=== PATIENT | female | born 1985 | race Caucasian/White ===

== ENCOUNTER → 2019-03-25 15:48 | Outpatient (CLI) | payer BC, SELFPAY ==
[2019-03-25 16:16] LABS: Add Manual Diff / Slide Review NO; Basophils Absolute Auto 100 /uL (0-100); Basophils Percent Auto 0.7 % (0-2); Eosinophils Absolute Auto 200 /uL (0-450); Eosinophils Percent Auto 1.7 % (2-4); Hemoglobin 14.1 g/dL (12.0-16.0); Lymphocytes Absolute Auto 2600 /uL (1100-4500); Lymphocytes Percent Auto 26.9 % (25-40); Mean Corpuscular HGB Conc 33.7 % (30-36); Mean Corpuscular Volume 89.1 fL (80-100); Monocytes Absolute Auto 500 /uL (0-900); Monocytes Percent Auto 5.7 % (3-14); Neutrophils Absolute Auto 6200 /uL (1500-7000); Platelet Count 295 X10^3/uL (150-400); Red Blood Cell Count 4.71 X10^6/uL (4.0-5.2); White Blood Cell Count 9.5 X10^3/uL (4.5-11.0)
[2019-03-25 17:01] LABS: Erythrocyte Sedimentation Rate 3 MM/HR (0-20)
[2019-03-25 17:19] LABS: Alanine Aminotransferase 18 IU/L (9-52); Albumin 4.3 g/dL (3.5-5.0); Albumin Globulin Ratio 1.7 (1.0-2.8); Alkaline Phosphatase 65 U/L (38-126); Aspartate Aminotransferase 27 IU/L (14-36); BUN Creatinine Ratio 21.4 (6-22); Bilirubin Total 0.3 mg/dL (0.2-1.3); Blood Urea Nitrogen 15 mg/dL (7-17); Calcium 9.8 mg/dL (8.4-10.2); Carbon Dioxide 27 mmol/L (22-32); Chloride 106 mmol/L (98-107); Estimated Glomerular Filt Rate > 60.0 mL/min (>60); Globulin 2.6 g/dL (1.7-4.1); Glucose 99 mg/dL (70-100); HEMOLYSIS < 15 (0-50); Potassium 4.9 mmol/L (3.4-5.1); Sodium 139 mmol/L (137-145); Total Protein 6.9 g/dL (6.3-8.2)
[2019-03-25 17:33] LABS: Free T3, Triiodothyronine Free 2.61 pg/mL (2.77-5.27); Free T4, Direct Thyroxine 1.07 ng/dL (0.78-2.19)
[2019-03-25 17:47] LABS: Thyroid Stimulating Hormone 1.15 uIU/mL (0.47-4.68)
== END ==
PROVIDERS: Visit Provider Internal Medicine Rheumatology
DX: E03.8 Other specified hypothyroidism (principal); E06.3 Autoimmune thyroiditis; M19.90 Unspecified osteoarthritis, unspecified site
CPT/HCPCS: 36415; 80053; 84439; 84443; 84481; 85025; 85651

== ENCOUNTER 2021-01-28 16:05 | Emergency (ER) | payer BC, SELFPAY ==
[2021-01-28 16:13] VITALS: BP 139/86; PULSE 96; RESP 16; TEMP 36.9; O2SAT 98; BMI 21.4
--- NOTE | 2021-01-28 17:39 | DI.RAD.S_ITS ---
PROCEDURE: XR FINGER LT MIN 2V INDICATIONS: nail injury to distal end of 5th digit TECHNIQUE: AP hand, 2 views of the 5th digit acquired. COMPARISON: None. FINDINGS: Bones: No displaced fractures or dislocations. There is a curvilinear lucency within the base of the 5th distal phalanx extending to the distal interphalangeal joint suspicious for a nondisplaced fracture. No suspicious bony lesions. Soft tissues: No suspicious soft tissue calcifications. IMPRESSION: 1. Suspected nondisplaced fracture in the 5th distal phalanx. Dictated by: Kevin Mazariegos M.D. on 01/28/2021 at 18:55 Approved by: Kevin Mzaariegos M.D. on 01/28/2021 at 18:56
[2021-01-28] MEDS: KETOROLAC 30 MG/ML VIAL IM (17:55)
--- NOTE | 2021-01-28 19:26 | ED_ITS ---
HPI - Extremity Injury (Upper) <RUDI Altman - Last Filed: 01/28/21 19:51> General Chief Complaint: Extremity Injury, Upper Stated Complaint: drill through left 5th finger nail Time Seen by Provider: 01/28/21 17:24 Source: patient Mode of arrival: Ambulatory Limitations: no limitations History of Present Illness HPI narrative: The patient is a 35-year-old female nonsmoker who presents with a chief complaint of hitting her left 5th finger nail with a drill. She is concerned about a fracture she states her tetanus is updated 2 years ago. She washed out the injury but has not taken anything for pain. It occurred approximately 330 p.m.. Related Data Home Medications Medication Instructions Recorded Confirmed bupropion HBr [Aplenzin] 150 mg OR Q DAY #0 08/05/16 09/21/20 desvenlafaxine succinate [Pristiq] 50 mg OR Q DAY #0 08/05/16 09/21/20 liothyronine 50 mcg tablet 50 mcg PO DAILY 09/21/20 09/21/20 Previous Rx's Medication Instructions Recorded cephalexin 500 mg PO TID #21 cap 01/28/21 hydrocodone-acetaminophen 1 tab PO Q4-6H PRN #10 tab 01/28/21 Allergies Allergy/AdvReac Type Severity Reaction Status Date / Time Penicillins [PENICILLINS] AdvReac Mild UPSET Unverified 09/21/20 15:15 STOMACH Review of Systems <RUDI Altman - Last Filed: 01/28/21 19:51> Review of Systems Narrative: GENERAL: Denies chills, fatigue, malaise, fever, sweats. HEENT: Denies sinus pain, ear pain, sore throat, difficulty swallowing, dizziness. RESPIRATORY: Denies dyspnea, cough, wheezing, hemoptysis, sputum. CARDIOVASCULAR: Denies chest pain, palpitations, orthopnea, edema, GASTROINTESTINAL: Denies nausea, vomiting, abdominal pain, diarrhea, constipation, melena. : Denies dysuria, frequency, incontinence, hematuria, urinary retention. MUSCULOSKELETAL: See HPI SKIN: See HPI NEUROLOGIC: Denies weakness, headache, numbness, change in speech, confusion, seizures, incoordination. PSYCHIATRIC: No concerning psychosocial issues. 12 point review of systems is negative except for those stated above Patient History <RUDI Altman - Last Filed: 01/28/21 19:51> Social History Smoking Status: Never smoker Smoking Status: Never smoker Exam <RUDI Altman - Last Filed: 01/28/21 19:51> Narrative Exam Narrative: GENERAL: This is a well-nourished, well-developed patient, in no acute distress HEAD: Atraumatic. Normocephalic. No temporal or scalp tenderness. EYES: Pupils equal round and reactive. Extraocular motions intact. No scleral icterus. No injection or drainage. ENT: Nose without bleeding, purulent drainage or septal hematoma. Wearing a mask Airway patent. NECK: Trachea midline. No JVD or lymphadenopathy. Supple, nontender, no meningeal signs. CARDIOVASCULAR: Regular rate and rhythm EXTREMITIES: Impression noted left 5th fingernail, no subungual hematoma noted. Small puncture appearing noted in the middle of the left 5th digit nail. Able to flex and extend left 5th finger against resistance, though decreased range of motion noted. BACK: Nontender without deformity or crepitance. No flank tenderness. NEURO: AOx3. SKIN: See extremity exam Initial Vital Signs Initial Vital Signs: Vital Signs Temperature 98.4 F 01/28/21 16:13 Pulse Rate 96 H 01/28/21 16:13 Respiratory Rate 16 01/28/21 16:13 Blood Pressure 139/86 01/28/21 16:13 Pulse Oximetry 98 01/28/21 16:13 <Trini Dunbar DO - Last Filed: 01/29/21 10:31> Initial Vital Signs Initial Vital Signs: Vital Signs Temperature 98.4 F 01/28/21 16:13 Pulse Rate 96 H 01/28/21 16:13 Respiratory Rate 16 01/28/21 16:13 Blood Pressure 139/86 01/28/21 16:13 Pulse Oximetry 98 01/28/21 16:13 Procedures <RUDI Altman - Last Filed: 01/28/21 19:51> Orthopedic Splinting/Casting Injury #1: Side: left Upper Extremity Injury Location: finger Post splinting neuro exam: intact Post splinting vascular exam: intact Placed by: Nursing Scores <RUDI Altman - Last Filed: 01/28/21 19:51> [facility] [place] coma scale eye opening: Spontaneous [place] coma scale verbal response: Orientated Ragini coma scale motor response: Obey commands [place] coma scale total score: 15 Course <RUDI Altman - Last Filed: 01/28/21 19:51> Orders Ordered: Discontinued Medications Cephalexin HCl (Cephalexin 250 Mg Capsule) 500 mg PO NOW ONE Stop: 01/28/21 19:13 Last Admin: 01/28/21 19:28 Dose: 500 mg Documented by: MARIA L Ketorolac Tromethamine (Ketorolac 30 Mg/Ml Vial) 30 mg IM NOW ONE Stop: 01/28/21 17:42 Last Admin: 01/28/21 17:55 Dose: 30 mg Documented by: MARIA L Vital Signs Vital signs: Vital Signs - 8 hr 01/28/21 16:13 Temperature 98.4 F Pulse Rate 96 H Respiratory Rate 16 Blood Pressure 139/86 Pulse Oximetry 98 <Trini Dunbar DO - Last Filed: 01/29/21 10:31> Orders Ordered: Discontinued Medications Cephalexin HCl (Cephalexin 250 Mg Capsule) 500 mg PO NOW ONE Stop: 01/28/21 19:13 Last Admin: 01/28/21 19:28 Dose: 500 mg Documented by: MARIA L Ketorolac Tromethamine (Ketorolac 30 Mg/Ml Vial) 30 mg IM NOW ONE Stop: 01/28/21 17:42 Last Admin: 01/28/21 17:55 Dose: 30 mg Documented by: MARIA L Vital Signs Vital signs: Vital Signs - 8 hr 01/28/21 16:13 Temperature 98.4 F Pulse Rate 96 H Respiratory Rate 16 Blood Pressure 139/86 Pulse Oximetry 98 MDM - Extremity Injury (Upper) <RUDI Altman - Last Filed: 01/28/21 19:51> Imaging Data Extremity x-ray #1: Radiologist's Impression: [address] [place] [id number] ReportSigned Patient: Fadia Wilson [facility]#: [id number]: 1985Acct:[id number]/Sex: 35 / FDate of Service: 01/28/21Loc: EDAccession Number: [id number] Procedure: XR finger LT min 2V Ordering Provider: Ling Gonzalez PROCEDURE: XR FINGER LT MIN 2V INDICATIONS: nail injury to distal end of 5th digit TECHNIQUE: AP hand, 2 views of the 5th digit acquired. COMPARISON: None. FINDINGS: Bones: No displaced fractures or dislocations. There is a curvilinear lucency within the base of the 5th distal phalanx extending to the distal interphalangeal joint suspicious for a nondisplaced fracture. No suspicious bony lesions. Soft tissues: No suspicious soft tissue calcifications. IMPRESSION: 1. Suspected nondisplaced fracture in the 5th distal phalanx. Dictated by: Kevin Mazariegos M.D. on 01/28/2021 at 18:55 Approved by: Kevin Mazariegos M.D. on 01/28/2021 at 18:56 MDM Narrative Medical decision making narrative: The patient is a 35-year-old female who presents with a chief complaint of an injury to her left 5th digit fingernail. Her tetanus is up-to-date. She is given Toradol for pain in the emergency department, which she states helps her pain. X-ray is suspicious for nondisplaced fracture, so will place patient on Keflex. She is placed in a finger splint. I discussed at length the importance follow-up with primary care provider for wound re-evaluation shortly. Will do small prescription of [place] for pain. Discussed at length coming back to the ER for acute concerns such as drainage, extending redness etcetera. Patient has no questions or concerns upon discharge states understanding return precautions as well as follow-up care. The patient declines River[place] in the emergency department. Discharge Plan Departure Patient Disposition: Home Clinical Impression: Finger fracture Qualifiers: Encounter type: initial encounter Finger: little finger Fracture type: open Phalanx: distal Fracture alignment: nondisplaced Laterality: left Qualified Code(s): S62.667B - Nondisplaced fracture of distal phalanx of left little finger, initial encounter for open fracture Instructions: DI for Finger Fracture, DI for Open Fracture Activity Restrictions/Additional Instructions: Thank you for trusting us with your care today. As discussed, there is suspicion of a small fracture in your finger. Given the injury of the nail, we have placed you on Keflex. This is an antibiotic. Please follow-up with primary care provider in the next few days. I have also placed your finger in a splint. Please come back to the emergency department for any acute concerns such as extending redness etcetera. Please keep your finger clean and dry. Do not submerge into any dirty water like [place] water etcetera. I did send a small prescription of a pain medicine in for you. You have been prescribed narcotic medications. While on these medications you cannot drive or operate heavy machinery. Additionally you cannot sign legal documents or perform any duties such as this. 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 Prescriptions: New cephalexin 500 mg capsule 500 mg PO TID Qty: 21 RF: 0 hydrocodone-acetaminophen 5-325 mg tablet 1 tab PO Q4-6H PRN (Reason: pain) Qty: 10 RF: 0 No Action bupropion HBr [Aplenzin] 174 MG tablet extended release 24 hr 150 mg OR Q DAY Qty: 0 RF: 0 desvenlafaxine succinate [Pristiq] 50 MG tablet extended release 24 hr 50 mg OR Q DAY Qty: 0 RF: 0 liothyronine 50 mcg tablet 50 mcg PO DAILY RF: 0 Referrals: Ophelia Naidu PA-C [Primary Care Provider] - Stand Alone Forms: Work Release Note <Trini Dunbar DO - Last Filed: 01/29/21 10:31> Cosign ED Attending [place] Attestation: I was immediately available in the department for consultation. Documentation has been reviewed. I agree with assessment and plan.
[2021-01-28] MEDS: cephALEXin 250 MG CAPSULE 500 MG PO (19:28)
[2021-01-28 19:53] VITALS: BP 140/82; PULSE 80; O2SAT 100
== END 2021-01-28 19:55 | disposition home or self-care (01) ==
PROVIDERS: Emergency Provider Nurse Practitioner Family; PCP Student in an Organized Health Care Education/Training Program
DX: S62.667A Nondisplaced fracture of distal phalanx of left little finger, initial encounter for closed fracture (principal); W22.8XXA Striking against or struck by other objects, initial encounter
CPT/HCPCS: 73140; 96372; 99283; J1885

== ENCOUNTER → 2021-05-26 09:00 | Outpatient (CLI) | payer BC, SELFPAY ==
[2021-05-26 12:09] LABS: COVID19 -Nasal RAPID Negative (Negative)
== END ==
PROVIDERS: PCP Student in an Organized Health Care Education/Training Program; Visit Provider Nurse Practitioner Family
DX: Z20.822 Contact with and (suspected) exposure to COVID-19 (principal)
CPT/HCPCS: 87635

== ENCOUNTER → 2021-11-25 10:44 | Outpatient (CLI) | payer BC, SELFPAY | PROVIDERS: PCP Student in an Organized Health Care Education/Training Program; Visit Provider Physician Assistant | DX: R30.0 Dysuria (principal) | CPT/HCPCS: 87086; 87210 ==

== ENCOUNTER → 2022-03-09 07:01 | Outpatient (CLI) | payer BC, SELFPAY ==
--- NOTE | 2022-03-09 | DI.MRI.S_ITS ---
PROCEDURE: MR HEAD/BRAIN WO/W CON INDICATIONS: Amnesia/Muscle cramps TECHNIQUE: Noncontrast axial T1 spin echo, axial T2 fast spin echo, sagittal and axial FLAIR, coronal T2 fast spin echo, axial gradient echo, axial diffusion and ADC through the brain. After the administration of contrast, axial and coronal and sagittal 3D VIBE or T1 spin echo with fat saturation through the brain. COMPARISON: None. FINDINGS: Image quality: Excellent. CSF Spaces: Basal cisterns are patent. No extra-axial fluid collections. Ventricles are normal in size and shape. Brain: No midline shift. No intracranial bleeds or masses. No abnormal intracranial enhancement. The brainstem appears normal. Diffusion-weighted images demonstrate no acute ischemic insults. No chronic ischemic insults. Normal intravascular flow voids are present. Dural sinuses demonstrate normal postcontrast enhancement. Skull and face: Calvarial marrow is normal in signal. Orbits appear normal. Sinuses: Mild mucosal thickening noted in the right sphenoid sinus. The mastoids appear clear. IMPRESSION: No intracranial disease process. No areas of acute or chronic infarction. No abnormal intracranial mass or suspicious postcontrast enhancement. No abnormal intracranial signal. Mild right sphenoid sinusitis. Dictated by: Digna Church MD, PhD on 03/09/2022 at 15:53 Approved by: Digna Church MD, PhD on 03/09/2022 at 15:57
== END ==
PROVIDERS: PCP Student in an Organized Health Care Education/Training Program; Referring Provider Psychiatry & Neurology Neuromuscular Medicine; Visit Provider Psychiatry & Neurology Neuromuscular Medicine
DX: R41.3 Other amnesia (principal); R25.2 Cramp and spasm; J32.3 Chronic sphenoidal sinusitis
CPT/HCPCS: 70553; A9579

== ENCOUNTER 2022-08-16 14:17 | Emergency (ER) | payer BC, SELFPAY ==
[2022-08-16 14:29] VITALS: BP 141/78; PULSE 86; RESP 16; TEMP 36.8; O2SAT 98; BMI 22.1
--- NOTE | 2022-08-16 14:34 | DI.RAD.S_ITS ---
PROCEDURE: XR CHEST 1V INDICATIONS: chest pain TECHNIQUE: One view of the chest was acquired. COMPARISON: None. FINDINGS: Surgical changes and devices: None. Lungs and pleura: Lungs are clear. No pleural effusions or pneumothorax. Mediastinum: Mediastinal contours appear normal. Heart size is normal. Bones and chest wall: No suspicious bony lesions. Overlying soft tissues appear unremarkable. IMPRESSION: No acute cardiopulmonary disease process. Dictated by: Digna Church MD, PhD on 08/16/2022 at 15:21 Approved by: Digna Church MD, PhD on 08/16/2022 at 15:21
[2022-08-16] MEDS: ONDANSETRON 4 MG ODT SL (14:48)
--- NOTE | 2022-08-16 15:21 | PC.NURSE ---
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
--- NOTE | 2022-08-16 16:03 | ED_ITS ---
HPI - Chest Pain <Lorelei Grewal PA-C - Last Filed: 08/16/22 17:20> General Chief Complaint: Chest Pain Stated Complaint: Chest Tightness/ HX RA Time Seen by Provider: 08/16/22 14:49 Source: patient Mode of arrival: Ambulatory Limitations: no limitations History of Present Illness HPI narrative: 36-year-old female with past medical history rheumatoid arthritis, hypothyroidism presents to the ED with 3 weeks of left-sided chest pain that wraps over the shoulder to her left upper back. Patient states that the pain actually started near the left lower ribs migrated to the left chest and ra diates back to the upper left back. Patient denies any trauma, carrying heavy weights, reaching, other inciting factors. Patient states that pushing down on her chest wall reproduces the pain. Patient denies fever, chills, shortness of breath, cough, sore throat, rhinorrhea, nausea, vomiting, abdominal pain, dysuria, lightheadedness, dizziness, syncope. Patient was weaned off of methotrexate at the end of June, is on a prednisone taper currently, scheduled to start Humira next week. Patient called her PCP this morning, who sent her to the ED for further evaluation. Related Data Home Medications Medication Instructions Recorded Confirmed bupropion HBr 174 mg 150 mg OR Q DAY ##0 08/05/16 11/25/21 tablet,extended release 24 hr (Aplenzin) desvenlafaxine succinate 50 mg 50 mg OR Q DAY ##0 08/05/16 11/25/21 tablet,extended release 24 hr (Pristiq) liothyronine 50 mcg tablet 50 mcg PO DAILY 09/21/20 11/25/21 levothyroxine 25 mcg capsule 25 mcg PO DAILY 05/26/21 11/25/21 Previous Rx's Medication Instructions Recorded hydrocodone 5 mg-acetaminophen 325 1 tab PO Q4-6H PRN pain #10 tabs 01/28/21 mg tablet Allergies Allergy/AdvReac Type Severity Reaction Status Date / Time Penicillins [PENICILLINS] AdvReac Mild UPSET Verified 08/16/22 17:03 STOMACH Review of Systems <Lorelei Grewal PA-C - Last Filed: 08/16/22 17:20> Review of Systems ROS Unobtainable: All systems reviewed & are unremarkable except as noted in HPI and below Constitutional Constitutional: Denies chills, Denies fatigue, Denies fever(s), Denies frequent falls, Denies lethargy and Denies weakness Eyes Eyes: Denies change in vision, Denies eye discharge, Denies irritation and Denies loss of vision ENT Ears, Nose, Mouth, and Throat: Denies change in voice, Denies dizziness, Denies neck pain, Denies sore throat and Denies throat swelling Cardiovascular Cardiovascular: Reports chest pain, Denies irregular heart rhythm, Denies lightheadedness, Denies palpitations, Denies dyspnea, Denies dyspnea on exertion and Denies orthopnea Respiratory Respiratory: Denies cough, Denies dyspnea, Denies dyspnea on exertion and Denies wheezing Gastrointestinal Gastrointestinal: Denies abdominal pain, Denies change in bowel habits, Denies diarrhea, Denies nausea and Denies vomiting Genitourinary Genitourinary: Denies hematuria, Denies flank pain, Denies urinary incontinence and Denies urinary urgency Musculoskeletal Musculoskeletal: Reports back pain, Denies muscle weakness, Denies neck pain, Denies numbness and Denies tingling Integumentary/Breasts Skin/Breast: Denies pruritus, Denies erythema, Denies rash and Denies wounds Neurologic Neurologic: Denies behavioral changes, Denies confusion, Denies dizziness, Denies frequent falls, Denies loss of vision, Denies numbness, Denies tingling and Denies weakness Psychiatric Psychiatric: Denies anxiety, Denies behavioral changes, Denies confusion, Denies depression, Denies homicidal ideation and Denies suicidal ideation Endocrine Endocrine: Denies fatigue, Denies flushing and Denies palpitations Hematologic/Lymphatic Hematologic/Lymphatic: Denies easy bruising Allergic/Immunologic Allergic/Immunologic: Denies urticaria, Denies throat swelling and Denies wheezing Patient History <Lorelei Grewal PA-C - Last Filed: 08/16/22 17:20> Social History Smoking Status: Never smoker Smoking Status: Never smoker alcohol intake frequency: 0-2 drinks per day Substance Use Type: does not use Exam <Lorelei Grewal PA-C - Last Filed: 08/16/22 17:20> Narrative Exam Narrative: Const General:?cooperative, healthy appearing and comfortable [facility] Head:?normal to inspection Ears:?hearing grossly normal bilaterally Nose:?external nose normal Face and sinus:?normal facial exam and sinuses nontender Mouth:?oral mucosae normal Throat:?posterior oropharynx normal Eyes General:?appearance normal, both eyes and all related structures Neck Neck:?normal visual inspection and no lymphadenopathy noted Resp Effort & Inspection:?normal respiratory effort Auscultation:?clear to auscultation bilaterally Cardio Rate:?regular rate Rhythm:?regular rhythm Tenderness to palpation of chest wall on left side Musculoskeletal No midline tenderness to palpation, no paraspinal tenderness to palpation Neuro General:?patient alert, patient awake and patient oriented x3 Initial Vital Signs Initial Vital Signs: Vital Signs Temperature 98.2 F 08/16/22 14:29 Pulse Rate 86 08/16/22 14:29 Respiratory Rate 16 08/16/22 14:29 Blood Pressure 141/78 H 08/16/22 14:29 Pulse Oximetry 98 08/16/22 14:29 Oxygen Delivery Method 08/16/22 14:29 <Ricki Gallo DO - Last Filed: 08/16/22 17:36> Initial Vital Signs Initial Vital Signs: Vital Signs Temperature 98.2 F 08/16/22 14:29 Pulse Rate 86 08/16/22 14:29 Respiratory Rate 16 08/16/22 14:29 Blood Pressure 141/78 H 08/16/22 14:29 Pulse Oximetry 98 08/16/22 14:29 Oxygen Delivery Method 08/16/22 14:29 Course <Lorelei Grewal PA-C - Last Filed: 08/16/22 17:20> Orders Ordered: ED Orders 08/16/22 14:34 XR chest 1V Stat Complete Blood Count AUTO DIFF Stat Comprehensive Metabolic Panel Stat Lipase Stat Magnesium Stat Troponin & CK Cardiac Panel Stat EKG-12 Lead Stat Discontinued Medications Sodium Chloride (Normal Saline 0.9%) 1,000 mls @ 1,000 mls/hr IV BOLUS ONE Stop: 08/16/22 17:25 Last Admin: 08/16/22 17:11 Dose: 1,000 mls/hr Documented By: PATRIZIA Ondansetron HCl (Ondansetron 4 Mg Odt) 4 mg SL NOW ONE Stop: 08/16/22 14:46 Last Admin: 08/16/22 14:48 Dose: 4 mg Documented By: MISHA Vital Signs Vital signs: Vital Signs - 8 hr 08/16/22 14:29 08/16/22 17:07 08/16/22 17:07 Temperature 98.2 F Pulse Rate 86 70 Respiratory Rate 16 Blood Pressure 141/78 H 135/82 Pulse Oximetry 98 100 Oxygen Delivery Method Room Air <Ricki Gallo DO - Last Filed: 08/16/22 17:36> Orders Ordered: ED Orders 08/16/22 14:34 XR chest 1V Stat Complete Blood Count AUTO DIFF Stat Comprehensive Metabolic Panel Stat Lipase Stat Magnesium Stat Troponin & CK Cardiac Panel Stat EKG-12 Lead Stat Discontinued Medications Sodium Chloride (Normal Saline 0.9%) 1,000 mls @ 1,000 mls/hr IV BOLUS ONE Stop: 08/16/22 17:25 Last Admin: 08/16/22 17:11 Dose: 1,000 mls/hr Documented By: PATRIZIA Ondansetron HCl (Ondansetron 4 Mg Odt) 4 mg SL NOW ONE Stop: 08/16/22 14:46 Last Admin: 08/16/22 14:48 Dose: 4 mg Documented By: MISHA Vital Signs Vital signs: Vital Signs - 8 hr 08/16/22 14:29 08/16/22 17:07 08/16/22 17:07 Temperature 98.2 F Pulse Rate 86 70 Respiratory Rate 16 Blood Pressure 141/78 H 135/82 Pulse Oximetry 98 100 Oxygen Delivery Method Room Air MDM - Chest Pain <Lorelei Grewal PA-C - Last Filed: 08/16/22 17:20> Lab Data Result diagrams: 08/16/22 14:34 08/16/22 14:34 Labs: Lab Results 08/16/22 08/16/22 Range/Units 14:34 14:34 WBC 7.3 (4.5-11.0) X10^3/uL RBC 4.13 (4.0-5.2) X10^6/uL Hgb 13.1 (12.0-16.0) g/dL Hct 38.5 (36-46) % MCV 93.0 (80-100) fL MCH 31.7 (26-34) PG MCHC 34.1 (30-36) % RDW 12.8 (11.6-14.8) % Plt Count 340 (150-400) X10^3/uL Neut % (Auto) 57.4 (50-75) % Lymph % (Auto) 35.8 (25-40) % Wake % (Auto) 5.0 (3-14) % Eos % (Auto) 1.1 L (2-4) % Baso % (Auto) 0.7 (0-2) % Neut # (Auto) 4200 (5601-8621) /uL Lymph # (Auto) 2600 (4825-5122) /uL Wake # (Auto) 400 (0-900) /uL Eos # (Auto) 100 (0-450) /uL Baso # (Auto) 0 (0-100) /uL Sodium 136 L (137-145) mmol/L Potassium 4.1 (3.4-5.1) mmol/L Chloride 104 (98-107) mmol/L Carbon Dioxide 24 (22-32) mmol/L BUN 9 (7-17) mg/dL Creatinine 0.71 (0.52-1.04) mg/dL Estimated GFR > 60 (>60) mL/min BUN/Creatinine Ratio 12.7 (6-22) Glucose 96 (70-100) mg/dL Calcium 9.7 (8.4-10.2) mg/dL Magnesium 2.0 (1.6-2.3) mg/dL Total Bilirubin 0.7 (0.2-1.3) mg/dL AST 42 H (14-36) IU/L ALT 23 (<35) IU/L Alkaline Phosphatase 62 (38-126) U/L Total Creatine Kinase 40 (30-135) U/L CK-MB (CK-2) TNP CK-MB (CK-2) Rel Index TNP Troponin I < 0.012 (0.01-0.034) ng/mL Total Protein 7.0 (6.3-8.2) g/dL Albumin 4.4 (3.5-5.0) g/dL Globulin 2.6 (1.7-4.1) g/dL Albumin/Globulin Ratio 1.7 (1.0-2.8) Lipase 125 (23-300) U/L Imaging Data Chest x-ray: Radiologist's Impression: PROCEDURE:? XR CHEST 1V ? INDICATIONS:? chest pain ? TECHNIQUE:? One view of the chest was acquired.? ? COMPARISON:? None. ? FINDINGS:? ? Surgical changes and devices:? None.? ? Lungs and pleura:? Lungs are clear.? No pleural effusions or pneumothorax.? ? Mediastinum:? Mediastinal contours appear normal.? Heart size is normal.? ? Bones and chest wall:? No suspicious bony lesions.? Overlying soft tissues appear unremarkable.? ? IMPRESSION:? No acute cardiopulmonary disease process. ? ? Dictated by: Digna Church MD, PhD on 08/16/2022 at 15:21 ? ? Approved by: Digna Church MD, PhD on 08/16/2022 at 15:21 ? MDM Narrative Medical decision making narrative: 36-year-old female with past medical history rheumatoid arthritis, hypothyroidism presents to the ED with 3 weeks of left-sided chest pain that wraps over the shoulder to her left upper back. Concern for ACS versus pneumonia versus musculoskeletal sprain/strain versus other. Will obtain EKG, chest x-ray, labs, troponin. Chest pain is reproducible with chest wall pressure. Will reassess. Workup unremarkable. Chest x-ray, EKG, labs, troponin without acute findings. Patient's symptoms likely due to musculoskeletal sprain/strain. Recommend Tylenol, lidocaine patches. ED return precautions were discussed with patient. Patient verbalized understanding. <Ricki Gallo, DO - Last Filed: 08/16/22 17:36> Lab Data Labs: Lab Results 08/16/22 08/16/22 Range/Units 14:34 14:34 WBC 7.3 (4.5-11.0) X10^3/uL RBC 4.13 (4.0-5.2) X10^6/uL Hgb 13.1 (12.0-16.0) g/dL Hct 38.5 (36-46) % MCV 93.0 (80-100) fL MCH 31.7 (26-34) PG MCHC 34.1 (30-36) % RDW 12.8 (11.6-14.8) % Plt Count 340 (150-400) X10^3/uL Neut % (Auto) 57.4 (50-75) % Lymph % (Auto) 35.8 (25-40) % Wake % (Auto) 5.0 (3-14) % Eos % (Auto) 1.1 L (2-4) % Baso % (Auto) 0.7 (0-2) % Neut # (Auto) 4200 (3561-2897) /uL Lymph # (Auto) 2600 (1625-6302) /uL Wake # (Auto) 400 (0-900) /uL Eos # (Auto) 100 (0-450) /uL Baso # (Auto) 0 (0-100) /uL Sodium 136 L (137-145) mmol/L Potassium 4.1 (3.4-5.1) mmol/L Chloride 104 (98-107) mmol/L Carbon Dioxide 24 (22-32) mmol/L BUN 9 (7-17) mg/dL Creatinine 0.71 (0.52-1.04) mg/dL Estimated GFR > 60 (>60) mL/min BUN/Creatinine Ratio 12.7 (6-22) Glucose 96 (70-100) mg/dL Calcium 9.7 (8.4-10.2) mg/dL Magnesium 2.0 (1.6-2.3) mg/dL Total Bilirubin 0.7 (0.2-1.3) mg/dL AST 42 H (14-36) IU/L ALT 23 (<35) IU/L Alkaline Phosphatase 62 (38-126) U/L Total Creatine Kinase 40 (30-135) U/L CK-MB (CK-2) TNP CK-MB (CK-2) Rel Index TNP Troponin I < 0.012 (0.01-0.034) ng/mL Total Protein 7.0 (6.3-8.2) g/dL Albumin 4.4 (3.5-5.0) g/dL Globulin 2.6 (1.7-4.1) g/dL Albumin/Globulin Ratio 1.7 (1.0-2.8) Lipase 125 (23-300) U/L Discharge Plan Departure Patient Disposition: Home Clinical Impression: Atypical chest pain Instructions: DI for Atypical Chest Pain Activity Restrictions/Additional Instructions: You were evaluated in the ED today for chest pain. Your chest x-ray, EKG, labs were normal. Your chest pain is also reproducible by pushing down on your chest wall, which is reassuring and likely indicative of a musculoskeletal sprain/strain. You may continue to take Tylenol, apply a lidocaine patch (salonpas), apply heat. Please follow-up with your PCP in 2 days. Return to the ED if you have worsening symptoms, shortness of breath. Prescriptions: No Action bupropion HBr [Aplenzin] 174 MG tablet extended release 24 hr 150 mg OR Q DAY Qty: 0 desvenlafaxine succinate [Pristiq] 50 MG tablet extended release 24 hr 50 mg OR Q DAY Qty: 0 liothyronine 50 mcg tablet 50 mcg PO DAILY levothyroxine 25 mcg capsule 25 mcg PO DAILY hydrocodone-acetaminophen 5-325 mg tablet 1 tab PO Q4-6H PRN (Reason: pain) Qty: 10 0RF Referrals: Ophelia Naidu PA-C [Primary Care Provider] - <Ricki Gallo DO - Last Filed: 08/16/22 17:36> Cosign ED Attending Cosignature Attestation: Dr Gallo Co-Sign Statement: I was available for consultation during this patient's emergency department visit. This chart is signed by myself for a dministrative purposes only. I did not have direct contact with this patient during this visit. They were seen independently by the APC.
[2022-08-16 16:34] LABS: Add Manual Diff / Slide Review NO; Basophils Absolute Auto 0 /uL (0-100); Basophils Percent Auto 0.7 % (0-2); Eosinophils Absolute Auto 100 /uL (0-450); Eosinophils Percent Auto 1.1 % (2-4); Hematocrit 38.5 % (36-46); Hemoglobin 13.1 g/dL (12.0-16.0); Lymphocytes Absolute Auto 2600 /uL (1100-4500); Lymphocytes Percent Auto 35.8 % (25-40); Mean Corpuscular HGB Conc 34.1 % (30-36); Mean Corpuscular Hemoglobin 31.7 PG (26-34); Monocytes Absolute Auto 400 /uL (0-900); Neutrophils Absolute Auto 4200 /uL (1500-7000); Neutrophils Percent Auto 57.4 % (50-75); Platelet Count 340 X10^3/uL (150-400); Red Blood Cell Count 4.13 X10^6/uL (4.0-5.2); Red Cell Distribution Width 12.8 % (11.6-14.8); White Blood Cell Count 7.3 X10^3/uL (4.5-11.0)
[2022-08-16 16:36] LABS: Alanine Aminotransferase 23 IU/L (<35); Albumin 4.4 g/dL (3.5-5.0); Albumin Globulin Ratio 1.7 (1.0-2.8); Alkaline Phosphatase 62 U/L (38-126); Aspartate Aminotransferase 42 IU/L (14-36); BUN Creatinine Ratio 12.7 (6-22); Bilirubin Total 0.7 mg/dL (0.2-1.3); Blood Urea Nitrogen 9 mg/dL (7-17); Calcium 9.7 mg/dL (8.4-10.2); Carbon Dioxide 24 mmol/L (22-32); Chloride 104 mmol/L (98-107); Creatine Kinase 40 U/L (30-135); Estimated Glomerular Filt Rate > 60 mL/min (>60); Globulin 2.6 g/dL (1.7-4.1); Glucose 96 mg/dL (70-100); HEMOLYSIS 15 (0-50); Lipase 125 U/L (23-300); Potassium 4.1 mmol/L (3.4-5.1); Sodium 136 mmol/L (137-145)
[2022-08-16 17:05] LABS: Troponin I < 0.012 ng/mL (0.01-0.034)
[2022-08-16 17:07] VITALS: BP 135/82; PULSE 70; O2SAT 100
[2022-08-16] MEDS: SODIUM CHLORIDE 0.9% 1,000 ML 1000 ML IV (17:11)
== END 2022-08-16 17:10 | disposition home or self-care (01) ==
PROVIDERS: Emergency Medicine; Emergency Provider Student in an Organized Health Care Education/Training Program; PCP Student in an Organized Health Care Education/Training Program
DX: R07.89 Other chest pain (principal); M54.6 Pain in thoracic spine
CPT/HCPCS: 36415; 71045; 80053; 82550; 83690; 83735; 84484; 85025; 93005; 93010; 99284